=== PATIENT | male | born 1970 | race Caucasian/White ===

== ENCOUNTER 2025-02-14 09:20 | Outpatient (OUT) | payer OTHER, SELFPAY ==
--- OUTSIDE RECORDS SUMMARY | 2025-02-14 09:27 | XMS_ITS | Encounter Summary ---
Author Organization [facility] Healthcare Address [address] [place] [address] Care Team Providers Care Fixture Fabricator Repairer Name Role Phone Lynn Navas NP Unavailable [phone] Keshia Carlton MD Unavailable [phone] Prabhakar Sanchez MD Primary Care Provider [phone] Reason for Visit * ReasonOnset DateCommentsPrior Cjxqyazosxcqr80/05/2025moabhijeet Encounter Details DateTypeDepartmentCare Team (Latest Contact Info)Bpdadobmnxv98/05/2025Telephone [facility] [address] [place] [address] Lynn Navas NP [address] [place], [place] [id number] Prior Authorization (amrita) Social History Tobacco UseTypesPacks/DayYears UsedDateSmoking Tobacco: NeverSmokeless Tobacco: NeverAlcohol UseStandard Drinks/WeekCommentsNever0 (1 standard drink = 0.6 oz pure alcohol)Caffeine intake: 2-3 cups per day pepsiEducationAnswerDate Recorded What is the highest level of school you have completed or the highest degree you have received?High school /02/2023Sex and Gender InformationValueDate RecordedSex Assigned at BirthNot on fileLegal OriTjah7105/11/2022 7:14 PM EDT Gender IdentityNot on fileSexual OrientationNot on fileOccupationIndustryJob Start DateJob End DateSelf employed- sells antiques internationallyNot on file Not on fileNot on filedocumented as of this encounter Miscellaneous Notes * Telephone Encounter - Christina Hudson MA - 01/31/2025 2:40 PM EST SANDY for amrita done on cover my meds. Waiting on reply documented in this encounter Plan of Treatment Not on file documented as of this encounter Goals GoalPatient Goal TypeAssociated ProblemsRecent ProgressPatient-Stated?Author Help patient manage antidepressant medication Care PlanPatient on antidepressant monitoring planNoPena Cherelle Baseline PHQ-9 Care PlanBaseline PHQ-9Eren Tianldocumented as of this encounter Visit Diagnoses Not on filedocumented in this encounter Additional Health Concerns Active ProblemsNoted DateDiagnosed DatePatient on antidepressant monitoring plan 5Baseline PHQ-9007/29/2024documented as of this encounter Care Teams Team MemberRelationshipSpecialtyStart DateEnd Date Keshia Carlton MD PCP - Medical [place] [employer]02/27/1811 Prabhakar Sanchez MD [address] [place] [address] PCP - GeneralFamily Zmwpsfwa37/1/25 Lynn Navas NP [address] [place] [address] Nurse PractitionerFamily Medicine09/07/22documented as of this encounter
--- OUTSIDE RECORDS SUMMARY | 2025-02-14 09:27 | XMS_ITS | Clinical Summary ---
Author Organization [facility] Address [address] [place] [address] Care Team Providers Care Global Compensation Director Name Role Phone Lynn Navas NP Unavailable [phone] Keshia Carlton MD Unavailable [phone] Prabhakar Sanchez MD Primary Care Provider [phone] Allergies Active AllergyReactionsCriticalityNoted DateCommentsDiphenhydramineUnknown 09/06/20224290FfiwcvcmvPkeguqc49/10/2023 Does not remember allergy Molds & MniipDrretac71/11/2023Penicillin MEigvcfc78/11/2023 Sulfamethoxazole-AtvjeytjgdgzUtpyo69/11/2023 Medications MedicationSigDispense QuantityRefillsLast FilledStart DateEnd DateStatus cetirizine (ZyrTEC) 10 MG tablet Take 1 tablet by mouth in the morning.Active omeprazole (PriLOSEC) [address] capsule Take 1 capsule (40 mg) by mouth in the morning. Take before meals. 30 capsule 4Active Additional Information Patient not taking.Reported on 01/30/2025 escitalopram (Lexapro) 5 MG tablet Indications:Depression, unspecified depression typeTake 1 tablet (5 mg) by mouth Daily 90 tablet 5Active fluticasone (Flonase) 50 MCG/ACT nasal spray Indications:Chronic pharyngitis,Seasonal allergic rhinitis due to pollenSHAKE GENTLY, PRIME PUMP BEFORE FIRST USE, THEN USE 1 TO 2 SPRAYS IN EACH NOSTRIL DAILY. AFTER USE,CLEAN TIP AND REPLACE*CAP 48 g 1105Active lisinopril 10 MG tablet Indications:Essential hypertensionTake 1 tablet (10 mg) by mouth in the morning. 90 tablet 3095Active metoprolol tartrate (Lopressor) 25 MG tablet Indications:Essential hypertensionTake 1 tablet (25 mg) by mouth in the morning and 1 tablet (25 mg) before bedtime. 180 tablet 5Active albuterol HFA 90 mcg/act inhaler Indications:Bronchitis,Chest tightnessInhale 2 puffs every 4 (four) hours if needed for wheezing or shortness of breath 18 g /6Active Tirzepatide (Mounjaro) 12.5 MG/0.5ML solution auto-injector Indications:Type 2 diabetes mellitus with other specified complication, without long-term current use of insulin ([facility])Inject 12.5 mg under the skin 1 (one) time per week 0.5 mL 1115Active tamsulosin (Flomax) 0.4 MG 24 hr capsule Take 0.4 mg by mouth Daily01/30/2025Discontinued cyclobenzaprine (Flexeril) 10 MG tablet Indications:Muscle tightnessTake 1 tablet (10 mg) by mouth in the morning and 1 tablet (10 mg) in the evening and 1 tablet (10 mg) before bedtime. Do all this for 10 days. 30 tablet Discontinued(Therapy completed) metoprolol tartrate (Lopressor) 25 MG tablet Indications:Essential hypertensionTake 1 tablet (25 mg) by mouth in the morning and 1 tablet (25 mg) before bedtime. 180 tablet /02/2024Discontinued(Reorder) Mounjaro 10 MG/0.5ML solution auto-injector Indications:Type 2 diabetes mellitus with other specified complication, without long-term current use of insulin ([facility])ADMINISTER 10 MG UNDER THE SKIN EVERY 7 DAYS 6 mL Discontinued azithromycin (Zithromax) 250 MG tablet Indications:BronchitisTake 2 tablets (500 mg) by mouth Daily for 1 day, THEN 1 tablet (250 mg) Daily for 4 days. 6 tablet /10/2024Expired predniSONE (Deltasone) 10 MG tablet Indications:Bronchitis,Acute coughTake 4 tablets (40 mg) by mouth Daily for 3 days, THEN 3 tablets (30 mg) Daily for 3 days, THEN 2 tablets (20 mg) Daily for 3 days, THEN 1 tablet (10 mg) Daily for 3 days. 30 tablet Expired Active Problems ProblemNoted DateDiagnosed DateTrace mitral valve kbqsvckiansmq00/11/2023 Osteoarthritis of cervical spine09/06/2022Hyperuricemia without signs of inflammatory arthritis and tophaceous lnuoyul2409/06/2022Thyroid iqiyzc7109/06/2022 Assessment & Plan (10/19/2024 1:33 PM EDT): Repeat us next year Aortic valve nrlgwkhzzqifz65/02/2023enign neoplasm of colon07/29/2022hronic gcstdqe7407/29/2022hronic gastritis without slgeibuc54/02/2023ontracture, right ankle07/29/20229481Prqwkovvlx16/02/2023iabetes ivxdovwy50/02/2023isorder of intervertebral disc of cervical spine07/29/20228263Pylfblqafjgtul21/02/2023 Dyshidrotic jdkjkr5807/29/2022Essential ccfoqveufuhe18/02/2023Fatty liver 07/29/2022astroesophageal reflux ezhzsnf9107/29/2022eneralized anxiety disorder 07/29/2022Hallux rigidus of right foot07/29/2022High-density lipoid deficiency 07/29/2022LPRD (laryngopharyngeal reflux disease)07/29/2022Morbid obesity 07/29/2022Multinodular zcxetd2407/29/2022OSA (obstructive sleep apnea)07/29/2022 Panic znidks2307/29/2022Reflux sslzuryxizs39/02/2023Renal ygstrol4807/29/2022Skew deformity of right foot07/29/2022Thalassemia minor07/29/2022Tubular adenoma 07/29/2022 Overview (05/17/2023): Due for a repeat colonoscopy 01/2028 Resolved Problems ProblemNoted DateDiagnosed DateResolved DateBilateral renal cysts01/09/2024 08/08/2024Sleep rfltevnnfgz36Tachycardia Tendinopathy of right rotator cuff/01/2025 Encounters DateTypeDepartmentCare VwshOynjlszrcvc69/10/2025Telephone [facility] [address] [place] [place] [address] Bre Martínez MA 01/31/2025Telephone [facility] [address] [place] [address] Lynn Navas NP Prior Authorization (amrita)01/31/2025Telephone [facility] [address] [place] [address] Prabhakar Sanchez MD 01/30/2025 3:00 PM ESTOffice Visit [facility] [address] [place] [address] Lynn Navas NP Bronchitis (Primary Dx); Chest tightness; Aortic valve insufficiency, etiology of cardiac valve disease unspecified; Trace mitral valve regurgitation; Essential hypertension; STEVE (obstructive sleep apnea); Type 2 diabetes mellitus with other specified complication, without long-term current use of insulin ([facility]); Depression, unspecified depression type; Generalized anxiety disorder; Sinus tcqiyvax07/04/2025amboo flowsheet [facility] [address] [place] [address] Lynn Navas NP 01/30/20250792Phxvtb44/01/2025Refill [place] [address] [place] [address] Prabhakar Sanchez MD Essential awpqbyeszsye41/30/2025Refill [facility] [address] [place] [address] Lynn Navas NP Type 2 diabetes mellitus with other specified complication, without long-term current use of insulin (HCC)11/23/2024Refill [facility] [address] [place] [address] Lynn Navas, SHEET TESTER Type 2 diabetes mellitus with other specified complication, without long-term current use of insulin (HCC)from Last 3 Months Immunizations ImmunizationAdministration DatesNext DueInfluenza, injectable, quadrivalent, preservative free12/21/2022,01/11/2022,02/18/2019,11/06/2017,11/23/2016, 12/14/2015,01/13/2014Influenza, seasonal, injectable, preservative free 11/07/2023Influenza, seasonal, intradermal, preservative free01/19/2015Tdap 08/02/2023,07/09/2011 Social History Tobacco UseTypesPacks/DayYears UsedDateSmoking Tobacco: NeverSmokeless Tobacco: Never Tobacco Cessation:Counseling Given: Not Answered Alcohol UseStandard Drinks/WeekCommentsNever0 (1 standard drink = 0.6 oz pure alcohol)Caffeine intake: 2-3 cups per day pepsiEducationAnswerDate RecordedWhat is the highest level of school you have completed or the highest degree you have received?High school mxqurmwd14/02/2023Sex and Gender InformationValueDate RecordedSex Assigned at BirthNot on fileLegal UhxBqsk8405/11/2022 7:14 PM EDT Gender IdentityNot on fileSexual OrientationNot on fileOccupationIndustryJob Start DateJob End DateSelf employed- sells boni internationallyNot on file Not on fileNot on file Last Filed Vital Signs Vital SignReadingTime TakenCommentsBlood Ajykqwki346/7401/30/2025 2:53 PM EST Figbs505301/30/2025 2:53 PM ZTHJywbzxzohyy58.8 ??C (98.3 ??F)01/30/2025 2:53 PM ESTRespiratory Rate--Oxygen Kxrbgiakvv22%10/19/2024 10:24 AM EDTInhaled Oxygen Concentration--Ulhwyf679 kg (313 lb)01/30/2025 2:53 PM UCBLxjvlx025.2 cm (6' 0.5 )08/08/2024 11:03 AM EDTBody Mass Index41.8708/08/2024 11:03 AM EDT Plan of Treatment Health MaintenanceDue DateLast DoneCommentsCT Kvcrbuvktnmp03/10/1970FIT-DNA 1969FIT1969FOBT1969 1580Qlyjetfrpwhhw41/10/1970Pneumococcal Vaccine: Pediatrics (0 to 5 Years) and At-Risk Patients (6 to 64 Years) (1 of 2 - PCV)1988COVID-19 Vaccine (1 - season)2024Influenza Vaccine (#1), 12/21/2022, 01/11/2022, Additional history exists Diabetes: Retinopathy Ozdoshrxy69/iabetes: Hemoglobin A1C /05/2024, 08/08/2024, 11/07/2023, Additional history existsDiabetes: Urine Protein Ogarlgkby33/, 07/26/2023, 09/08/2022, Additional history wjodamLrcshhyrdac50, 02/23/2023, 02/23/2023, Additional history existsColorectal Cancer Mojbyntuz96/28/2033 Goals GoalPatient Goal TypeAssociated ProblemsRecent ProgressPatient-Stated?Author Help patient manage antidepressant medication Care PlanPatient on antidepressant monitoring Cherelle Mcneil Baseline PHQ-9 Care PlanBaseline PHQ-9Cherelle Tian Procedures Procedure NamePriorityDate/TimeAssociated DiagnosisCommentsPOCT GLYCOSYLATED HEMOGLOBIN (HGB A1C)Xokcqdu5001/30/2025 3:43 PM EST Type 2 diabetes mellitus with other specified complication, without long-term current use of insulin (HCC) MICROALBUMIN / CREATININE URINE KZSFJBlmhxif02/26/2025 2:25 PM EDT Type 2 diabetes mellitus with other specified complication, without long-term current use of insulin (HCC) Wellness examination DIABETIC RETINOPATHY SCREENING - OU - BOTH MZUWOkcdwgh05/03/2024 3:11 PM ESTHM EYNRXWLDEGMUfhhvyi55/28/2023 2:07 PM ESTfrom Last 3 Months or Most Recently Relevant to Health Maintenance Results * POCT glycosylated hemoglobin (Hb A1C) docked device (01/30/2025 3:43 PM EST) ComponentValueRef RangeTest MethodAnalysis TimePerformed AtPathologist SignatureHemoglobin A1C5.7Specimen (Source)Anatomical Location / Laterality Collection Method / VolumeCollection TimeReceived TimeBloodVenous blood specimen / Fxiffaj7401/30/2025 3:43 PM EST Narrative Authorizing ProviderResult TypeResult Miriam Navas NPPOINT OF CARE TEST ENTER/EDIT ORDERABLESFinal Result * Microalbumin / creatinine, urine ratio (10/22/2024 2:25 PM EDT)ComponentValue Ref RangeTest MethodAnalysis TimePerformed AtPathologist SignatureCREATININE, RANDOM KQPAS32099 - 320 mg/dLQUESTALBUMIN, URINE0.2See Note: mg/dLQUEST Comment: Reference Range: Reference Range Not established ALBUMIN/CREATININE RATIO, RANDOM URINE1<30 mg/g creatQUESTComment: The ADA defines abnormalities in albumin excretion as follows: Albuminuria Category ?Result (mg/g creatinine) Normal to Mildly increased <30 Moderately increased ? 30-299 Severely increased > OR = 300 The ADA recommends that at least two of three specimens collected within a 3-6 month period be abnormal before considering a patient to be within a diagnostic category. Specimen (Source)Anatomical Location / LateralityCollection Method / Volume Collection TimeReceived TimeUrineUrine specimen obtained by clean catch procedure / Nvkdtzi5710/22/2024 2:25 PM EDT10/22/2024 2:26 PM EDT Narrative [facility] - 10/23/2024 10:16 AM EDT SPLIT 08/08/2024 FROM [id number] Resulting Agency Comment Performing Organization Information ?Site ID: QPT ?Name: [facility] ?Address: [address] [place] [address], [address] [place] [id number] ?Director: Remington Marsh MD Authorizing ProviderResult TypeResult Miriam Navas NPLAB URINE ORDERABLESFinal ResultPerforming OrganizationAddressCity/State/ZIP CodePhone Number [facility] * Diabetic Retinopathy Screening - OU - Both Eyes (03/01/2023 3:11 PM EST) Anatomical RegionLateralityModalityHeadOther Narrative Authorizing ProviderResult TypeResult StatusNoms Provider Unallocated MDOPHTH PHOTOGRAPHYFinal Result * Hm Colonoscopy (02/23/2023 2:07 PM EST)Anatomical RegionLateralityModality Other Narrative Authorizing ProviderResult TypeResult StatusMichael Grillis DOHEALTH MAINTENANCE Final Result from Last 3 Months or Most Recently Relevant to Health Maintenance Additional Health Concerns Active ProblemsNoted DateDiagnosed DatePatient on antidepressant monitoring plan 07/29/2024aseline PHQ-9007/29/2024 Insurance Care Teams Team MemberRelationshipSpecialtyStart DateEnd Keshia Carlton MD PCP - Medical [place] [employer]02/27/1811 Prabhakar Sanchez MD [address] [place] [address] PCP - GeneralFamily Gigvjufr86/1/25 Lynn Navas NP [address] [place] [address] Nurse PractitionerFaNortheast Georgia Medical Center Lumpkin09/07/22
--- OUTSIDE RECORDS SUMMARY | 2025-02-14 09:27 | XMS_ITS | Clinical Summary ---
Author Organization [facility] Address [id number] [address] [place] [address] Care Team Providers Care Junior Systems Engineer Name Role Phone Keshia Carlton MD Primary Care Provider [phone] Allergies Active AllergyReactionsCriticalityNoted DateComments Sulfamethoxazole-KlcsrwhupkacFloaw22/13/2017Diphenhydramine JnuLumxo11/13/2017 MeloxicamOther (See Comments)01/06/2023 Does not remember allergy MoldOther (See Comments)09/06/20229086AxmbzdkanqnKrjgs90/13/2017Sulfa (Sulfonamide Antibiotics)Hives Medications MedicationSigDispense QuantityRefillsLast FilledStart DateEnd DateStatus cetirizine (ZyrTEC) 10 mg tablet Take 1 tablet (10 mg total) by mouth in the morning.Active metoprolol tartrate (LOPRESSOR) 25 mg tablet Take 1 tablet (25 mg total) by mouth in the morning and 1 tablet (25 mg total) before bedtime.Active escitalopram (LEXAPRO) 10 mg tablet Take 1 tablet (10 mg total) by mouth in the morning.Active lisinopriL (PRINIVIL,ZESTRIL) 10 mg tablet Take 1 tablet (10 mg total) by mouth in the morning.5Active Active Problems ProblemNoted DateDiagnosed DateRenal bcpwqpf1107/29/20228447Ttkegytfmi78/02/2023 Diabetes pucwobxa78/02/1657Ikrmwbdjusrzah12/02/2023astro-esophageal reflux disease with rduaatfrxem81/02/2023astroesophageal reflux tiyzjth8607/29/2022 Generalized anxiety kulwzzhm25/02/2023Hallux rigidus of right foot07/29/2022 Multinodular ggnkme1907/29/2022anic rnwxve9307/29/2022Tendinopathy of right rotator cuff07/29/2022Thalassemia minor07/29/2022ortic valve xcmhrgdsfvazq02/02/2023 Essential duenykmvvvdn51/11/2021Osteoarthritis of cervical spine08/28/2017 Gfvmlwiepmy05/14/2017Tachycardia Immunizations ImmunizationAdministration DatesNext XsrLyip2008/02/2023 Family History * Patient is adopted RelationNameStatusCommentsFatherAliveMotherAlive Social History Tobacco UseTypesPacks/DayYears UsedDateSmoking Tobacco: NeverSmokeless Tobacco: Never Tobacco Cessation:Counseling Given: Not Answered Alcohol UseStandard Drinks/WeekCommentsNo0 (1 standard drink = 0.6 oz pure alcohol)ChildcareAnswerDate SdphocxcUdiyegrxoQpqucpl51/12/2019EmploymentAnswer Date IitwhhobHppuznqxacOwwcdfs24/12/2019Hunger ScreeningAnswerDate Recorded Within the past 12 months we worried whether our food would run out before we got money to buy more.Never True08/02/2023Within the past 12 months the food we bought just didn't last and we didn't have money to get more.Never True 08/02/2023urpose - LifeAnswerDate RecordedPurpose and direction in lifeUnknown 04/09/2020ex and Gender InformationValueDate RecordedSex Assigned at BirthNot on fileLegal CdxKfop2410/02/2014 11:23 AM EDTGender IdentityNot on fileSexual OrientationNot on file Last Filed Vital Signs Vital SignReadingTime TakenCommentsBlood Fvwwiuzj077/77003/20/2024 9:25 AM EST Xoaev965903/20/2024 9:25 AM SYYCzzkadulelq37.9 ??C (98.5 ??F)08/02/2023 2:11 PM EDTRespiratory Aiac314608/02/2023 2:11 PM EDTOxygen Scpmltemww61%03/20/2024 9:25 AM ESTInhaled Oxygen Concentration--Fqiqiw241.4 kg (331 lb 8 oz)03/20/2024 9:25 AM CXSYbbbxf908.9 cm (6')03/20/2024 9:25 AM ESTBody Mass Index44.9603/20/2024 9:25 AM EST Plan of Treatment DateTypeDepartmentCare Team (Latest Contact Info)Ruxsiideqgi96/31/2025 10:15 AM ESTAppointment [facility] [address] [place] [address] 02/26/2025 10:30 AM ESTAppointment [facility] [address] [place] [address] Health MaintenanceDue DateLast DoneCommentsDepression Onfukpmvr84/10/1982Adult BMI Follow Up Plan06/07/1987Zoster (Shingles) Vaccine (1 of 2)06/07/2019 Influenza Diiysqm49/01/08047811/07/2023, 12/21/2022, 01/11/2022, Additional history existsAdult BMI Ugyraretb94/22/89394303/20/2024Tobacco Cpsfxitsj89/22/2026 03/20/20244838Vbuaibadjbj90, 02/23/2023, 03/27/2017, Additional history existsDTaP,Tdap and Td Vaccines (3 - Td or Tdap)/06/2023, 07/09/2011 Medical Devices Not on file Procedures Procedure NamePriorityDate/TimeAssociated DiagnosisCommentsPROVATION COLONOSCOPY Sdwtfaa2402/23/2023 6:14 AM EST from Last 3 Months or Most Recently Relevant to Health Maintenance Results * Colonoscopy Report (02/23/2023 6:14 AM EST)Specimen (Source)Anatomical Location / LateralityCollection Method / VolumeCollection TimeReceived Time Narrative SYSTEMGENERATED, DOCUMENTATION - 02/23/2023 6:14 AM EST This order has been auto-finalized for image and report archival in PACs. *For full report details, please reach out to your physician. ??This image is visible to you in MyChart.* Authorizing ProviderResult TypeResult StatusMichael E Grillis DOIMG OR IMG ORDERABLESFinal Result from Last 3 Months or Most Recently Relevant to Health Maintenance Insurance Care Teams Team MemberRelationshipSpecialtyStart DateEnd Keshia Carlton MD [address] [place] [address] PCP - GeneralFamily Medicine07/29/16
--- OUTSIDE RECORDS SUMMARY | 2025-02-14 09:27 | XMS_ITS | Clinical Summary ---
Author Organization [facility] Address [address] [place] [address] Care Team Providers Care Glaze Supervisor Name Role Phone Unavailable Primary Care Provider Unavailabl e Social History Tobacco UseTypesPacks/DayYears UsedDateSmoking Tobacco: Never AssessedSex and Gender InformationValueDate RecordedSex Assigned at BirthNot on fileLegal Sex Male06/24/2022 7:23 AM EDTGender IdentityNot on fileSexual OrientationNot on file Last Filed Vital Signs Vital SignReadingTime TakenCommentsBlood Pressure--Pulse--Temperature-- Respiratory Rate--Oxygen Saturation--Inhaled Oxygen Concentration--Lugeix630.7 kg (330 lb)08/24/2022 3:07 AM MRRVqwjqk782.9 cm (6')08/24/2022 3:07 AM EDTBody Mass Index44.76008/24/2022 3:07 AM EDT Plan of Treatment Health MaintenanceDue DateLast DoneCommentsAnxiety Vethnhscy41/10/1988Depression Wmiqiqosj36/10/1988HIV Ijpdzkfib42/10/1988Hepatitis C Giplvtyuu88/10/1988 Hepatitis B Vaccine (1 of 3 - 19+ 3-dose series)1988Lipid Screening 2004CT Ftoudgfknhwg71/10/2015Cologuard (FIT-DNA)2014Colonoscopy 2014Colorectal Cancer Corokklmz12/10/2015Diabetes Zevxjdgrp81/10/2015Fecal Occult Blood2014Prostate Cancer Screening Jcnvmbmaxy39/10/2015 Purywupunheqs99/10/2015Pneumococcal Vaccine: 50+ (1 of 1 - PCV)06/07/2019RSV Vaccine (1 - Risk 50-74 years 1-dose series)06/07/2019Shingrix Vaccine (1 of 2) 06/07/2019DTaP,Tdap,Td Vaccine (2 - Td or Tdap)Covid-19 Vaccine (2024- season)2024Influenza Vaccine (#1)2024 01/11/2022, 02/18/2019, 11/06/2017, Additional history exists Insurance
--- OUTSIDE RECORDS SUMMARY | 2025-02-14 09:27 | XMS_ITS | Encounter Summary ---
Author Organization [facility] Address [address] [place] [address] Care Team Providers Care Naval Designer Name Role Phone Lynn Navas NP Unavailable [phone] Keshia Carlton MD Unavailable [phone] Prabhakar Sanchez MD Primary Care Provider [phone] Encounter Details DateTypeDepartmentCare Team (Latest Contact Info)Flvdkrnttws62/05/2025[facility]phone [facility] [address] [place] [address] Prabhakar Sanchez MD [address] [place] [address] Social History Tobacco UseTypesPacks/DayYears UsedDateSmoking Tobacco: NeverSmokeless Tobacco: NeverAlcohol UseStandard Drinks/WeekCommentsNever0 (1 standard drink = 0.6 oz pure alcohol)Caffeine intake: 2-3 cups per day pepsiEducationAnswerDate Recorded What is the highest level of school you have completed or the highest degree you have received?High school zjdmnkyz54/02/2023Sex and Gender InformationValueDate RecordedSex Assigned at BirthNot on fileLegal WbfTylx8105/11/2022 7:14 PM EDT Gender IdentityNot on fileSexual OrientationNot on fileOccupationIndustryJob Start DateJob End DateSelf employed- sells antiques internationallyNot on file Not on fileNot on filedocumented as of this encounter Miscellaneous Notes * Telephone Encounter - Lynn Navas NP - 01/31/2025 3:07 PM EST Please notify rx sent. * Telephone Encounter - Tomas Matthews - 01/31/2025 11:19 AM EST PT called and asked for steroid to be sent to RX that was spoke about at appt. on 01/30/2025 documented in this encounter Plan of Treatment Not on file documented as of this encounter Goals GoalPatient Goal TypeAssociated ProblemsRecent ProgressPatient-Stated?Author Help patient manage antidepressant medication Care PlanPatient on antidepressant monitoring planCherelle Tian Baseline PHQ-9 Care PlanBaseline PHQ-9Eren Tianldocumented as of this encounter Visit Diagnoses Diagnosis Bronchitis- Primary Bronchitis, not specified as acute or chronic Acute cough documented in this encounter Additional Health Concerns Active ProblemsNoted DateDiagnosed DatePatient on antidepressant monitoring plan 5Baseline PHQ-9007/29/2024documented as of this encounter Care Teams Team MemberRelationshipSpecialtyStart DateEnd Date Keshia Carlton MD PCP - Medical [place] [employer]02/27/1811 Prabhakar Sanchez MD [address] [place] [address] PCP - GeneralFamily Ibrcjgdr62/1/25 Lynn Navas NP [address] [place] [address] Nurse PractitionerFamily Medicine09/07/22documented as of this encounter
--- OUTSIDE RECORDS SUMMARY | 2025-02-14 09:27 | XMS_ITS | Encounter Summary ---
Author Organization [facility] Address [address] [place] [address] Care Team Providers Care Information Systems Audit Manager Name Role Phone Lynn Nvaas NP Unavailable [phone] Keshia Carlton MD Unavailable [phone] Prabhakar Sanchez MD Primary Care Provider [phone] Encounter Details DateTypeDepartmentCare Team (Latest Contact Info)Jsgeswibaes54/10/2025Telephone [facility] [address] [place] [phone] Bre Martínez MA Social History Tobacco UseTypesPacks/DayYears UsedDateSmoking Tobacco: NeverSmokeless Tobacco: NeverAlcohol UseStandard Drinks/WeekCommentsNever0 (1 standard drink = 0.6 oz pure alcohol)Caffeine intake: 2-3 cups per day pepsiEducationAnswerDate Recorded What is the highest level of school you have completed or the highest degree you have received?High school txbmykjb51/02/2023Sex and Gender InformationValueDate RecordedSex Assigned at BirthNot on fileLegal MqbDihv8305/11/2022 7:14 PM EDT Gender IdentityNot on fileSexual OrientationNot on fileOccupationIndustryJob Start DateJob End DateSelf employed- sells antiques internationallyNot on file Not on fileNot on filedocumented as of this encounter Miscellaneous Notes * Telephone Encounter - Bre Martínez MA - 02/05/2025 12:55 PM EST Spoke with pt, he is taking metoprolol 25 mg BID and lisinopril 10 mg daily. Just picked up Rx for both . documented in this encounter Plan of Treatment [...] Date Keshia Carlton MD PCP - [facility] [place] [employer]02/27/1811 Prabhakar Sanchez MD [address] [place] [address] PCP - GeneralFavaly Bqzlnypm90/1/25 Lynn Navas NP [address] [place] [address] Nurse PractitionerFamily Medicine09/07/22documented as of this encounter
--- NOTE | 2025-02-14 09:31 | XR_ITS ---
[facility] [place] [id number] Patient Name: AZEB BRYAN MRN: [id number] date: 1970 Sex: M Assigned Patient Location: [facility] Current Patient Location: [facility] Accession/Order Number: [id number] Exam Date: 02/14/2025 09:33 Report Date: 02/14/2025 10:13 At the request of: DALIA HAJI NP Procedure: XR abdomen 1V SINGLE VIEW ABDOMEN COMPARISON: 05/26/2022 CLINICAL DATA: Follow-up in patient with history of kidney stones. Supine views of the abdomen and pelvis were obtained. There is air within the colon and nondistended small bowel loops. There is no prominent stool. No soft tissue masses are seen. The kidneys are partially obscured, right worse than left. No obvious radiopaque renal or ureteral stones are identified. There are several pelvic phleboliths. Sclerosis is again noted at the SI joints. XR/XR abdomen 1V IMPRESSION: NO RADIOPAQUE STONES. Impression dictated by: Nora Villalobos M.D. 02/14/2025 10:13 AM Dictation Location: [place] [address] Electronically authenticated by: [id number] Y Date: 02/14/2025 10:13
== END 2025-02-14 09:21 | disposition home or self-care (01) ==
LOC: RAD 09:24
PROVIDERS: PCP Family Medicine; Visit Provider Nurse Practitioner Family
DX: N20.0 Calculus of kidney (principal)
CPT/HCPCS: 74018